=== PATIENT | male | born 1950 | race Two or more races ===

== ENCOUNTER 2025-01-26 04:12 | Emergency (ER) | payer OTHER ==
[~2025-01-26] VITALS: Ht 180.3 cm; Wt 88.5 kg
[2025-01-26] MEDS ORDERED: CRESTOR40 MG PO (04:22)
[2025-01-26] MEDS ORDERED: KETOROLAC TROMETHAMINE 30 MG VIAL IM STA (05:18)
[2025-01-26] MEDS ORDERED: ORPHENADRINE CITRATE 30 MG/ML AMPUL IM STA (05:19)
[2025-01-26] MEDS ORDERED: DEXAMETHASONE SODIUM PHOSPHATE 4 MG/ML VIAL IM STA (05:20)
[2025-01-26 06:45] LABS: URINE APPEARANCE Clear; URINE BILIRRUBIN Negative (NEGATIVE); URINE BLOOD Negative; URINE COLOR Yellow; URINE GLUCOSE Negative (NEGATIVE); URINE KETONE Negative (NEGATIVE); URINE LEUKOCYTE Negative; URINE NITRATE Negative; URINE PROTEIN Negative (NEGATIVE); URINE UROBILINOGEN 1.0 E.U./dl
[2025-01-26 06:46] LABS: ALT/SGPT 42.0 U/L (12-78); AST/SGOT 20.0 U/L (15-37); BILIRUBIN TOTAL 0.56 mg/dL (0.3-1.2); BUN CREA RATIO 23.0 (7.0-25.0); CREATININE SERUM 0.75 mg/dL (0.70-1.30); GFR 102.08; GLOBULINA 2.7 G/DL (2.4-3.5); GLUCOSE FASTING 95.0 mg/dL (65-100); OSMOLALITY SERUM 286.0 MOSM/KG (275-295)
[2025-01-26 06:49] LABS: URINE BACTERIA 5.9 uL (0.0-1933); URINE CAST 0.14 uL (0.0-1.40); URINE EPITHELIAL CELLS 0.6 uL (0.0-38.8); URINE RBC 10.5 uL (0.0-20.8); URINE WBC 2.6 uL (0.0-23.2)
[2025-01-26 07:25] LABS: BASO % 0.4 % (0.1-1.2); EOS # 0.12 (0.04-0.54); EOS % 2.3 % (0.7-7.0); LYMPH # 2.35 (1.18-3.74); LYMPH % 45.7 % (19.3-53.1); MEAN PLATELET VOLUME 11.50 fl (9.4-12.4); MONO # 0.43 (0.24-0.82); MONO % 8.4 % (4.7-12.5); NEUT # 2.21 (1.56-6.13); NEUT % 43.0 % (34.0-71.1); RED CELL DISTRIBUTION WIDTH 13.6 % (11.6-14.4)
== END 2025-01-26 07:28 | disposition home or self-care (01) ==
LOC: ER 04:12
PROVIDERS: General Practice
DX: M54.50 Low back pain, unspecified (principal)
CPT/HCPCS: 36415; 74176; 96372; 99284; J1100; J1885; J2360